=== PATIENT | male | born 1950 | race Caucasian/White ===

== ENCOUNTER 2018-08-20 11:58 | Emergency (ER) | payer MEDICARE, OTHER ==
[2018-08-20] MEDS ORDERED: Sodium Chloride 0.9% 1,000 ML IV ONE ×2 (12:15→14:13)
[2018-08-20] MEDS ORDERED: Sodium Chloride 0.9% 10 ML Syringe FLUSH PRN (12:15)
[2018-08-20] MEDS ORDERED: Sodium Chloride 0.9% 2.5 ML Syringe FLUSH PRN (12:15)
[2018-08-20] MEDS ORDERED: Meclizine 25 MG Tab PO ONE (12:20)
[2018-08-20] MEDS ORDERED: Ondansetron 4 MG/2 ML SDV IVPUSH ONE (12:20)
[2018-08-20 13:17] LABS: CHLORIDE,CL 100 mmol/L (98-107); SODIUM,NA 134 mmol/L (136-148)
[2018-08-20] MEDS ORDERED: cefTRIAXone 1 GM in Premix Bag 1 BAG IV ONE (14:13)
--- NOTE | 2018-08-20 14:14 | EDM.PDOC ---
ED HPI GENERAL MEDICAL PROBLEM - General Chief Complaint: Neuro Symptoms/Deficits Stated Complaint: DIZZY Time Seen by Provider: 08/20/18 11:59 Source of Information: Reports: Patient History Limitations: Reports: No Limitations - History of Present Illness INITIAL COMMENTS - FREE TEXT/NARRATIVE: History of present illness: []Patient was seen at [facility] this morning dizzy, and had a chest x-ray, blood glucose and EKG done. His glucose was high at 333 and he was sent to the ER for further evaluation. Patient complains of feeling ill states that he was on antibiotics for his prostate by Dr. Peraza for several days. His symptoms worsened after he finished his antibiotics. Review of systems: As per history of present illness and below otherwise all systems reviewed and negative. Past medical history: As per history of present illness and as reviewed below otherwise noncontributory. Surgical history: As per history of present illness and as reviewed below otherwise noncontributory. Social history: No reported history of drug or alcohol abuse. Family history: As per history of present illness and as reviewed below otherwise noncontributory. Physical exam: General: Well developed, well nourished in NAD HEENT: Atraumatic, normocephalic, pupils reactive, negative for conjunctival pallor or scleral icterus, mucous membranes moist, throat clear, neck supple, nontender, trachea midline. Lungs: Clear to auscultation, breath sounds equal bilaterally, chest nontender. Heart: S1S2, regular, negative for clicks, rubs, or JVD. Abdomen: NABS, Soft, nondistended, nontender. Negative for masses or hepatosplenomegaly. Negative for costovertebral tenderness. Pelvis: Stable nontender. Genitourinary: Deferred. Rectal: Deferred. Extremities: Atraumatic, negative for cords or calf pain. Neurovascular unremarkable. Neuro: Awake, alert, oriented. Cranial nerves II through XII unremarkable. Cerebellum unremarkable. Motor and sensory unremarkable throughout. Exam nonfocal. Skin:warm and dry Diagnostics: CBC, chemistry, blood cultures, UA, troponin (EKG, chest x-ray was done prior to arrival at [facility]) Therapeutics: IV hydration ED Course: Impression: Prescriptions: Plan: Definitive disposition and diagnosis as appropriate pending reevaluation and review of above. - Related Data Allergies Allergy/AdvReac Type Severity Reaction Status Date / Time Iodinated Contrast- Oral and Allergy Itching Verified 08/20/18 12:11 IV Dye [Iodinated Contrast Media - IV Dye] shellfish derived Allergy Shortness Verified 08/20/18 12:11 of Breath Sulfa (Sulfonamide Allergy Hives Verified 08/20/18 12:11 Antibiotics) Home Meds: Home Meds Amitriptyline HCl 1 tab PO BEDTIME 11/07/13 [History] Fluticasone Propionate [Flonase] 1 - 2 sprays INH ASDIRECTED 11/07/13 [History] Fluticasone Propionate [Flovent HFA 220 MCG] 12 inh INH ASDIRECTED 11/07/13 [ History] Formoterol/Mometasone [Dulera 100 MCG/5 MCG] 2 inh INH BID 11/07/13 [History] Lisinopril 1 tab PO DAILY 11/07/13 [History] Omeprazole 1 tab PO DAILY 11/07/13 [History] metFORMIN [Glucophage] 500 tab PO BID 11/07/13 [History] SUMAtriptan [Imitrex] 50 mg PO ASDIRECTED PRN 03/01/15 [History] Magnesium Citrate 295 ml PO ASDIRECTED #1 solution 05/24/15 [Rx] Ezetimibe [Zetia] 1 tab PO BEDTIME 09/28/15 [History] Empagliflozin [Jardiance] 10 mg PO DAILY 08/20/18 [History] levoFLOXacin [Levaquin] 500 mg PO DAILY #14 tab 08/20/18 [Rx] Past Medical History HEENT History: Reports: Impaired Vision Other HEENT History: glasses Cardiovascular History: Reports: High Cholesterol, Hypertension Respiratory History: Reports: Asthma Other Respiratory History: inhalers Gastrointestinal History: Reports: Gastritis, GERD Other Gastrointestinal History: prilosec Musculoskeletal History: Reports: Arthritis Neurological History: Reports: Migraines Other Neuro History: imitrex Endocrine/Metabolic History: Reports: Diabetes, Type II Other Endocrine/Metabolic History: metformin - Infectious Disease History Infectious Disease History: Reports: Mumps - Past Surgical History HEENT Surgical History: Reports: Other (See Below) Neurological Surgical History: Reports: Lumbar Spine Social & Family History - Family History Family Medical History: Noncontributory - Tobacco Use Smoking Status *Q: Never Smoker - Caffeine Use Caffeine Use: Reports: Coffee - Recreational Drug Use Recreational Drug Use: No - Living Situation & Occupation Living situation: Reports: ED ROS GENERAL - Review of Systems Review Of Systems: See Below ED EXAM, GENERAL - Physical Exam Exam: See Below Course - Vital Signs Last Recorded V/S: Last Vital Signs Temp 98.8 F 08/20/18 12:12 Pulse 120 H 08/20/18 12:12 Resp 18 08/20/18 12:12 BP 134/73 08/20/18 12:12 Pulse Ox 94 L 08/20/18 12:12 - Orders/Labs/Meds Orders: Active Orders 24 hr Category Date Time Status CULTURE BLOOD [BC] Stat Lab 08/20/18 12:27 Results CULTURE BLOOD [BC] Stat Lab 08/20/18 12:38 Received CULTURE URINE [RM] Routine Lab 08/20/18 14:41 Ordered Sodium Chloride 0.9% [Normal Saline] 1,000 ml Med 08/20/18 14:13 Active IV .Bolus Sodium Chloride 0.9% [Saline Flush] Med 08/20/18 12:15 Active 10 ml FLUSH ASDIRECTED PRN Sodium Chloride 0.9% [Saline Flush] Med 08/20/18 12:15 Active 2.5 ml FLUSH ASDIRECTED PRN Blood Culture x2 Reflex Set [OM.PC] Stat Oth 08/20/18 12:15 Ordered Saline Lock Insert [OM.PC] Stat Oth 08/20/18 12:14 Ordered Medication Orders Sodium Chloride (Normal Saline) 1,000 mls @ 999 mls/hr IV .Bolus ONE Stop: 08/20/18 15:13 Last Admin: 08/20/18 14:27 Dose: 999 mls/hr Sodium Chloride (Saline Flush) 10 ml FLUSH ASDIRECTED PRN PRN Reason: Keep Vein Open Last Admin: 08/20/18 12:34 Dose: 10 ml Sodium Chloride (Saline Flush) 2.5 ml FLUSH ASDIRECTED PRN PRN Reason: Keep Vein Open Last Admin: 08/20/18 12:34 Dose: 2.5 ml Labs: Laboratory Tests 08/20/18 08/20/18 08/20/18 Range/Units 12:27 12:27 12:27 WBC 17.02 H (4.0-11.0) K/uL RBC 4.56 (4.50-5.90) M/uL Hgb 14.1 (13.0-17.0) g/dL Hct 41.3 (38.0-50.0) % MCV 90.6 (80.0-98.0) fL MCH 30.9 (27.0-32.0) pg MCHC 34.1 (31.0-37.0) g/dL RDW Std Deviation 44.4 (28.0-62.0) fl RDW Coeff of Gisella 14 (11.0-15.0) % Plt Count 136 L (150-400) K/uL MPV 10.00 (7.40-12.00) fL Neut % (Auto) 82.9 H (48.0-80.0) % Lymph % (Auto) 8.8 L (16.0-40.0) % [place] % (Auto) 7.9 (0.0-15.0) % Eos % (Auto) 0.2 (0.0-7.0) % Baso % (Auto) 0.2 (0.0-1.5) % Neut # (Auto) 14.1 H (1.4-5.7) K/uL Lymph # (Auto) 1.5 (0.6-2.4) K/uL [place] # (Auto) 1.4 H (0.0-0.8) K/uL Eos # (Auto) 0.0 (0.0-0.7) K/uL Baso # (Auto) 0.0 (0.0-0.1) K/uL Nucleated RBC % 0.0 /100WBC Nucleated RBCs # 0 K/uL Sodium 134 L (136-148) mmol/L Potassium 4.1 (3.5-5.1) mmol/L Chloride 100 (98-107) mmol/L Carbon Dioxide 23.1 (21.0-32.0) mmol/L BUN 14 (7.0-18.0) mg/dL Creatinine 1.1 (0.8-1.3) mg/dL Est Cr Clr Drug Dosing 66.36 mL/min Estimated GFR (MDRD) > 60.0 ml/min Glucose 263 H (74-106) mg/dL Calcium 9.2 (8.5-10.1) mg/dL Total Bilirubin 0.7 (0.2-1.0) mg/dL AST 17 (15-37) IU/L ALT 25 (14-63) IU/L Alkaline Phosphatase 73 (46-116) U/L Troponin I < 0.050 (0.000-0.056) ng/mL Total Protein 7.6 (6.4-8.2) g/dL Albumin 3.3 L (3.4-5.0) g/dL Globulin 4.3 H (2.6-4.0) g/dL Albumin/Globulin Ratio 0.8 L (0.9-1.6) Urine Color Urine Appearance Urine pH (5.0-8.0) Ur Specific [address] [address] (1.001-1.035) Urine Protein (NEGATIVE) mg/dL Urine Glucose (UA) (NEGATIVE) mg/dL Urine Ketones (NEGATIVE) mg/dL Urine Occult Blood (NEGATIVE) Urine Nitrite (NEGATIVE) Urine Bilirubin (NEGATIVE) Urine Urobilinogen (<2.0) EU/dL Ur Leukocyte Esterase (NEGATIVE) Urine RBC (0-2/HPF) Urine WBC (0-5/HPF) Ur Epithelial Cells (NONE-FEW) Urine Bacteria (NEGATIVE) Ketones NEGATIVE (NEG) 08/20/18 Range/Units 14:15 WBC (4.0-11.0) K/uL RBC (4.50-5.90) M/uL Hgb (13.0-17.0) g/dL Hct (38.0-50.0) % MCV (80.0-98.0) fL MCH (27.0-32.0) pg MCHC (31.0-37.0) g/dL RDW Std Deviation (28.0-62.0) fl RDW Coeff of Gisella (11.0-15.0) % Plt Count (150-400) K/uL MPV (7.40-12.00) fL Neut % (Auto) (48.0-80.0) % Lymph % (Auto) (16.0-40.0) % [place] % (Auto) (0.0-15.0) % Eos % (Auto) (0.0-7.0) % Baso % (Auto) (0.0-1.5) % Neut # (Auto) (1.4-5.7) K/uL Lymph # (Auto) (0.6-2.4) K/uL [place] # (Auto) (0.0-0.8) K/uL Eos # (Auto) (0.0-0.7) K/uL Baso # (Auto) (0.0-0.1) K/uL Nucleated RBC % /100WBC Nucleated RBCs # K/uL Sodium (136-148) mmol/L Potassium (3.5-5.1) mmol/L Chloride (98-107) mmol/L Carbon Dioxide (21.0-32.0) mmol/L BUN (7.0-18.0) mg/dL Creatinine (0.8-1.3) mg/dL Est Cr Clr Drug Dosing mL/min Estimated GFR (MDRD) ml/min Glucose (74-106) mg/dL Calcium (8.5-10.1) mg/dL Total Bilirubin (0.2-1.0) mg/dL AST (15-37) IU/L ALT (14-63) IU/L Alkaline Phosphatase (46-116) U/L Troponin I (0.000-0.056) ng/mL Total Protein (6.4-8.2) g/dL Albumin (3.4-5.0) g/dL Globulin (2.6-4.0) g/dL Albumin/Globulin Ratio (0.9-1.6) Urine Color YELLOW Urine Appearance SLT CLOUDY Urine pH 5.0 (5.0-8.0) Ur Specific [address] 1.015 (1.001-1.035) Urine Protein 30 H (NEGATIVE) mg/dL Urine Glucose (UA) 500 H (NEGATIVE) mg/dL Urine Ketones NEGATIVE (NEGATIVE) mg/dL Urine Occult Blood SMALL H (NEGATIVE) Urine Nitrite NEGATIVE (NEGATIVE) Urine Bilirubin NEGATIVE (NEGATIVE) Urine Urobilinogen 0.2 (<2.0) EU/dL Ur Leukocyte Esterase TRACE H (NEGATIVE) Urine RBC 0-2 (0-2/HPF) Urine WBC 10-12 (0-5/HPF) Ur Epithelial Cells RARE (NONE-FEW) Urine Bacteria 1+ H (NEGATIVE) Ketones (NEG) Meds: Medications Generic Name Dose Route Start Last Admin Trade Name Freq PRN Reason Stop Dose Admin Sodium Chloride 1,000 mls @ 999 mls/hr 08/20/18 14:13 08/20/18 14:27 Normal Saline IV 08/20/18 15:13 999 mls/hr .Bolus ONE Administration Sodium Chloride 10 ml 08/20/18 12:15 08/20/18 12:34 Saline Flush FLUSH 10 ml ASDIRECTED PRN Administration Keep Vein Open Sodium Chloride 2.5 ml 08/20/18 12:15 08/20/18 12:34 Saline Flush FLUSH 2.5 ml ASDIRECTED PRN Administration Keep Vein Open Discontinued Medications Generic Name Dose Route Start Last Admin Trade Name Frevictor hugo PRN Reason Stop Dose Admin Sodium Chloride 1,000 mls @ 999 mls/hr 08/20/18 12:15 08/20/18 12:34 Normal Saline IV 08/20/18 13:15 999 mls/hr .Bolus ONE Administration Ceftriaxone Sodium/Dextrose 1 50 mls @ 100 mls/hr 08/20/18 14:13 08/20/18 14: 27 gm/ Premix IV 08/20/18 14:42 100 mls/hr ONETIME ONE Administration Meclizine HCl 25 mg 08/20/18 12:20 08/20/18 12:34 Antivert PO 08/20/18 12:21 25 mg ONETIME ONE Administration Ondansetron HCl 4 mg 08/20/18 12:20 08/20/18 12:34 Zofran IVPUSH 08/20/18 12:21 4 mg ONETIME ONE Administration Departure - Departure Time of Disposition: 14:44 Disposition: Home, Self-Care 01 Condition: Good Clinical Impression: UTI (urinary tract infection) Qualifiers: Urinary tract infection type: site unspecified Hematuria presence: without hematuria Qualified Code(s): N39.0 - Urinary tract infection, site not specified Prostatitis Qualifiers: Prostatitis type: unspecified Qualified Code(s): N41.9 - Inflammatory disease of prostate, unspecified - Discharge Information *PRESCRIPTION DRUG MONITORING PROGRAM REVIEWED*: No *COPY OF PRESCRIPTION DRUG MONITORING REPORT IN PATIENT TORRI: No Prescriptions: levoFLOXacin [Levaquin] 500 mg PO DAILY #14 tab Referrals: Wisam Anderson MD [Primary Care Provider] - Forms: ED Department Discharge Additional Instructions: The following information is given to patients seen in the emergency department who are being discharged to home. This information is to outline your options for follow-up care. We provide all patients seen in our emergency department with a follow-up referral. The need for follow-up, as well as the timing and circumstances, are variable depending upon the specifics of your emergency department visit. If you don't have a primary care physician on staff, we will provide you with a referral. We always advise you to contact your personal physician following an emergency department visit to inform them of the circumstance of the visit and for follow-up with them and/or the need for any referrals to a consulting specialist. The emergency department will also refer you to a specialist when appropriate. This referral assures that you have the opportunity for follow-up care with a specialist. All of these measure are taken in an effort to provide you with optimal care, which includes your follow-up. Under all circumstances we always encourage you to contact your private physician who remains a resource for coordinating your care. When calling for follow-up care, please make the office aware that this follow-up is from your recent emergency room visit. If for any reason you are refused follow-up, please contact the [facility] Emergency Department at and asked to speak to the emergency department charge nurse. ,Take meds as directed, follow up with Dr. Peraza, return to ER if symptoms worsen or change. [facility] Primary [facility] [address] [place] [id number] [facility] Specialty [facility] - Urology [address] [place] [id number] - My Orders Last 24 Hours: My Active Orders 08/20/18 12:14 Saline Lock Insert [OM.PC] Stat 08/20/18 12:15 Sodium Chloride 0.9% [Saline Flush] 10 ml FLUSH ASDIRECTED PRN Sodium Chloride 0.9% [Saline Flush] 2.5 ml FLUSH ASDIRECTED PRN Blood Culture x2 Reflex Set [OM.PC] Stat 08/20/18 12:27 CULTURE BLOOD [BC] Stat 08/20/18 12:38 CULTURE BLOOD [BC] Stat 08/20/18 14:13 Sodium Chloride 0.9% [Normal Saline] 1,000 ml IV .Bolus 08/20/18 14:41 CULTURE URINE [RM] Routine - Assessment/Plan Last 24 Hours: My Active Orders 08/20/18 12:14 Saline Lock Insert [OM.PC] Stat 08/20/18 12:15 Sodium Chloride 0.9% [Saline Flush] 10 ml FLUSH ASDIRECTED PRN Sodium Chloride 0.9% [Saline Flush] 2.5 ml FLUSH ASDIRECTED PRN Blood Culture x2 Reflex Set [OM.PC] Stat 08/20/18 12:27 CULTURE BLOOD [BC] Stat 08/20/18 12:38 CULTURE BLOOD [BC] Stat 08/20/18 14:13 Sodium Chloride 0.9% [Normal Saline] 1,000 ml IV .Bolus 08/20/18 14:41 CULTURE URINE [RM] Routine
[2018-08-20 16:02] VITALS: BP 120/65
== END 2018-08-20 16:01 | disposition home or self-care (01) ==
LOC: MW.ED 11:58
DX: N41.9 Inflammatory disease of prostate, unspecified (principal); N39.0 Urinary tract infection, site not specified; I10 Essential (primary) hypertension; E78.00 Pure hypercholesterolemia, unspecified; E11.9 Type 2 diabetes mellitus without complications; K21.9 Gastro-esophageal reflux disease without esophagitis; J45.909 Unspecified asthma, uncomplicated; Z79.899 Other long term (current) drug therapy; Z79.84 Long term (current) use of oral hypoglycemic drugs; Z88.2 Allergy status to sulfonamides; Z91.013 Allergy to seafood
CPT/HCPCS: 36415; 80053; 81001; 82009; 84484; 85025; 87040; 87086; 87088; 87186; 96361; 96365; 96375; 99284; A4217; A9270; J0696; J2405; J7040

== ENCOUNTER 2021-02-21 07:14 | Day surgery (SDC) | payer MEDICARE, OTHER ==
[~2021-02-21 07:14] MED LIST: Lactated Ringers 1,000 ML IV SCH
[2021-02-21] MEDS ORDERED: Propofol 200 MG/20 ML SDV ONE (07:32)
[2021-02-21] MEDS ORDERED: fentaNYL 100 MCG/2 ML SDV ONE (07:32)
--- NOTE | 2021-02-21 08:12 | PCM.PREANE ---
Preanesthetic Assessment - Anesthesia/Transfusion/Family Hx Anesthesia History: Prior Anesthesia Without Reaction Other Type of Anesthesia Reaction Comment: Spouse denies any known problems in the past, no known family hx: problems Transfusion History: No Prior Transfusion(s) - Physical Assessment Height: 5 ft 10 in Weight: 188 lb - Allergies Allergies/Adverse Reactions: Allergies Allergy/AdvReac Type Severity Reaction Status Date / Time Iodinated Contrast Media Allergy Itching Verified 02/15/21 12:13 [Iodinated Contrast Media - IV Dye] shellfish derived Allergy Itching Verified 02/15/21 12:13 Sulfa (Sulfonamide Allergy Shortness Verified 02/15/21 12:13 Antibiotics) of Breath PreAnesthesia Questionnaire HEENT History: Reports: Hard of Hearing Other HEENT History: wears glasses, has bilateral hearing aides but doesn't wear them Cardiovascular History: Reports: High Cholesterol Respiratory History: Reports: Asthma Gastrointestinal History: Reports: GERD, PUD Genitourinary History: Reports: Prostate Disorder Other Genitourinary History: hx of prostate cancer Musculoskeletal History: Reports: Arthritis, Fracture Other Musculoskeletal History: hx of fx shoulder blade as a child Neurological History: Reports: Concussion, Migraines Psychiatric History: Reports: None Endocrine/Metabolic History: Reports: Diabetes, Type II Hematologic History: Reports: None Immunologic History: Reports: None Oncologic (Cancer) History: Reports: None Dermatologic History: Reports: None - Infectious Disease History Infectious Disease History: Reports: Mumps - Past Surgical History Head Surgeries/Procedures: Reports: None HEENT Surgical History: Reports: Naso-Sinus Surgery GI Surgical History: Reports: Cholecystectomy, Colonoscopy, Hernia, Inguinal Male Surgical History: Reports: Prostatectomy Other Male Surgeries/Procedures: Robotic Prostatectomy Neurological Surgical History: Reports: Lumbar Spine Other Neurological Surgeries/Procedures: removal of arthritis - SUBSTANCE USE Tobacco Use Status *Q: Never Tobacco User Recreational Drug Use History: No - HOME MEDS Home Medications: Home Meds Fluticasone Propionate [Flovent HFA 220 MCG] 1 - 2 inh INH ASDIRECTED PRN [History] Formoterol/Mometasone [Dulera 100 MCG/5 MCG] 2 inh INH BID 11/07/13 [History] Lisinopril 10 mg PO BEDTIME 11/07/13 [History] Omeprazole 20 mg PO DAILY PRN 11/07/13 [History] SUMAtriptan [Imitrex] 50 mg PO ASDIRECTED PRN MDD 100mg 03/01/15 [History] Empagliflozin [Jardiance] 10 mg PO DAILY 08/20/18 [History] Montelukast Sodium 10 mg PO DAILY 02/15/21 [History] Tadalafil [Cialis] 10 - 20 mg PO ASDIRECTED 02/15/21 [History] atorvaSTATin Calcium [Atorvastatin Calcium] 40 mg PO DAILY 02/15/21 [History] traMADol [Ultram] 50 mg PO ASDIRECTED PRN 02/15/21 [History] - CURRENT (IN HOUSE) MEDS Current Meds: Current Medications Lactated Ringer's (Ringers, Lactated) 1,000 mls @ 125 mls/hr IV ASDIRECTED SRUTHI Discontinued Medications Fentanyl (Fentanyl 100 Mcg/2 Ml Sdv) Confirm Administered Dose 100 mcg .ROUTE .STK-MED ONE Stop: 02/21/21 07:33 Lidocaine HCl (Lidocaine 1% 5 Ml Sdv) Confirm Administered Dose 5 ml .ROUTE .STK-MED ONE Stop: 02/21/21 07:45 Propofol (Propofol 200 Mg/20 Ml Sdv) Confirm Administered Dose 1,600 mg .ROUTE .STK-MED ONE Stop: 02/21/21 07:33
--- NOTE | 2021-02-21 09:34 | PCM.OPNOTE ---
- General Post-Op/Procedure Note Date of Surgery/Procedure: 02/21/21 Operative Procedure(s): Colonoscopy Pre Op Diagnosis: Change in bowel habits. Decreased stool caliber. Post-Op Diagnosis: No evidence of neoplasia Anesthesia Technique: MAC (ASA III) Primary Surgeon: Sushil Walker Centrifugal Casting Machine Operator: Aaron Friedman Condition: Good Free Text/Narrative:: DICTATION 624703 CPT CODE 32023
[2021-02-21] MEDS ORDERED: Lactated Ringers 1,000 ML IV SCH (09:45)
--- NOTE | 2021-02-21 09:55 | PCM48HPAN ---
Post Anesthesia Note - EVALUATION WITHIN 48HRS OF ANESTHETIC Vital Signs in Normal Range: Yes Patient Participated in Evaluation: Yes Respiratory Function Stable: Yes Airway Patent: Yes Cardiovascular Function Stable: Yes Hydration Status Stable: Yes Pain Control Satisfactory: Yes Nausea and Vomiting Control Satisfactory: Yes Mental Status Recovered: Yes Vital Signs: Last Vital Signs Temp 98.6 F 02/21/21 09:31 Pulse 78 02/21/21 09:41 Resp 13 02/21/21 09:41 BP 116/68 02/21/21 09:41 Pulse Ox 94 L 02/21/21 09:41
--- NOTE | 2021-02-21 09:55 | PCM.POSTAN ---
POST ANESTHESIA ASSESSMENT - MENTAL STATUS Mental Status: Alert, Oriented - VITAL SIGNS Vital Signs: Last Vital Signs Temp 98.6 F 02/21/21 09:31 Pulse 78 02/21/21 09:41 Resp 13 02/21/21 09:41 BP 116/68 02/21/21 09:41 Pulse Ox 94 L 02/21/21 09:41 - RESPIRATORY Respiratory Status: Respiratory Rate WNL, Airway Patent, O2 Saturation Stable - CARDIOVASCULAR CV Status: Pulse Rate WNL, Blood Pressure Stable - GASTROINTESTINAL GI Status: No Symptoms - POST OP HYDRATION Hydration Status: Adequate & Stable
[2021-02-21 11:24] VITALS: BP 118/65; PULSE 73
--- NOTE | 2021-02-22 08:34 | OR ---
SURGEON: Sushil Walker M.D. DATE OF PROCEDURE: 02/21/2021 OPERATION PERFORMED: Colonoscopy. PRIMARY SURGEON: Sushil Walker M.D. CHEMIST BIOLOGICAL: LAWANDA Diaz student. ANESTHESIA: MAC. ASA CLASSIFICATION: III. PREOPERATIVE DIAGNOSES: 1. Change in bowel habits. 2. Decreased stool caliber. POSTOPERATIVE DIAGNOSIS: No evidence of neoplasia. DESCRIPTION OF PROCEDURE: The patient was taken to the endoscopy room and positioned on the endoscopy table in the left lateral decubitus position. Time-out was called for appropriate identification of the patient and procedure. Monitored anesthesia care was provided. The colonoscope was inserted into the rectum and advanced with minimal difficulty to the cecum. The cecum was identified by internal landmarks and external pressure. The colonoscope was then retroflexed to visualize the ascending colon from below then straightened and slowly withdrawn. The cecum, ascending colon, hepatic flexure, transverse colon, splenic flexure, descending colon, sigmoid colon, and rectum were very well visualized. No tumors, polyps, diverticula, or angiodysplastic changes were noted anywhere in the lower gastrointestinal tract. There was no evidence of inflammatory bowel disease. Once the colonoscope was withdrawn to the rectum, it was retroflexed to visualize the anal orifice from above. Again no tumors or polyps were seen. There were no acute hemorrhoidal changes. The colonoscope was then straightened, the rectum aspirated and the colonoscope was removed. The patient tolerated the procedure well and was taken to recovery room in stable condition. JOSEP / VASILE /[id number]
== END 2021-02-21 10:00 | disposition home or self-care (01) ==
LOC: MW.SDS 07:14
PROVIDERS: ATTEND Surgery
DX: R19.4 Change in bowel habit (principal); J45.909 Unspecified asthma, uncomplicated; E11.9 Type 2 diabetes mellitus without complications; N52.9 Male erectile dysfunction, unspecified; K21.9 Gastro-esophageal reflux disease without esophagitis; G43.909 Migraine, unspecified, not intractable, without status migrainosus; K42.9 Umbilical hernia without obstruction or gangrene; E78.00 Pure hypercholesterolemia, unspecified; Z88.2 Allergy status to sulfonamides; Z88.8 Allergy status to other drugs, medicaments and biological substances; Z91.013 Allergy to seafood; Z79.899 Other long term (current) drug therapy; Z98.890 Other specified postprocedural states
CPT/HCPCS: 45378; 82947; J2704; J3010; J7120; 00811; 99100